=== PATIENT | female | born 1945 | race Caucasian/White ===

== ENCOUNTER → 2021-01-28 | Outpatient (CLI) | payer MEDICARE ==
--- NOTE | 2021-01-28 16:30 | Diagnostic Imaging Report ---
INDICATION: Fall with right shoulder pain. TECHNIQUE: AP and transscapular views of the right shoulder were obtained. FINDINGS: No fracture or dislocation is seen. There is no acute bony abnormality. There is mild degenerative change of the AC joint and glenohumeral joint. IMPRESSION: Degenerative findings. No acute bony abnormality of the right shoulder. Dictated by: Dictated on workstation # [id number]
== END ==
LOC: RAD FS 15:08
PROVIDERS: ATTEND Family Medicine
DX: M19.011 Primary osteoarthritis, right shoulder (principal)
CPT/HCPCS: 73030